=== PATIENT | female | born 1975 | race Caucasian/White ===

== ENCOUNTER → 2023-08-06 | Outpatient (CLI) | payer OTHER, SELFPAY ==
--- NOTE | 2023-08-06 15:51 | CT_ITS ---
EXAM: CT CERVICAL SPINE WITHOUT INTRAVENOUS CONTRAST CLINICAL INDICATION: Cervical Pain TECHNIQUE: Helically acquired images were obtained of the cervical spine without intravenous contrast. 2D reformatted images were reviewed. This CT exam was performed using one or more of the following dose reduction techniques: automated exposure control, adjustment of the mA and/or kV according to patient size, and/or use of iterative reconstruction technique. RADIATION DOSE: CTDIvol = 13.62 mGy, DLP = 303.52 mGy-cm. COMPARISON: No relevant prior studies available. FINDINGS: VERTEBRAE: Straightening of the usual lordotic curvature. Slight anterolisthesis of 2 with respect to C3 of roughly 2 mm, and at C3 with respect to C4 roughly 2 mm. Moderate disc space narrowing at C5-6 with anterior, posterior and uncovertebral osteophytes. Minimal narrowing of the ventral thecal sac at multiple levels, minimal AP estimated to be 1 cm at C5-6. Facet joint hypertrophic changes, greater on the left at C2-C4 and on the right at C3-4. No fracture or acute-appearing subluxation. DISCS/SPINAL CANAL/NEURAL FORAMINA: Mild disc space narrowing C4-5 and C6-7 minimal spondylosis. Moderate bilateral C5-6 neural foraminal stenosis. SOFT TISSUES: Unremarkable. No prevertebral soft tissue swelling. LYMPH NODES: Unremarkable. No cervical adenopathy. LUNG APICES: Unremarkable as visualized. Clear. CT/Spine Cervical without Contras IMPRESSION: 1. No specific acute abnormality. Minimal subluxations appear chronic. Straightening of the usual lordotic curvature 2. Degenerative spine changes most pronounced at C5-6 including borderline spinal canal narrowing and moderate neural foraminal stenosis. Electronically Signed: Marlee Cam MD at 3:58 EDT ,
== END | disposition home or self-care (01) ==
PROVIDERS: PCP Internal Medicine; Referring Provider Internal Medicine; Visit Provider Internal Medicine
DX: M54.2 Cervicalgia (principal)
CPT/HCPCS: 72125

== ENCOUNTER → 2023-08-13 | Outpatient (CLI) | payer OTHER, SELFPAY ==
--- NOTE | 2023-08-13 13:27 | MRI_ITS ---
EXAM: MR RIGHT UPPER EXTREMITY WITHOUT INTRAVENOUS CONTRAST, SHOULDER CLINICAL INDICATION: acute pain of right shoulder, weakness, numbness and tingling in fingers TECHNIQUE: Multiplanar and multisequence MR images of the right shoulder without intravenous contrast. COMPARISON: No relevant prior studies available. FINDINGS: TENDONS: SUPRASPINATUS: Focal low to moderate grade partial-thickness tear involving the articular sided fibers of the posterior supraspinatus tendon at its greater tubercle attachment. INFRASPINATUS: Unremarkable. Intact. SUBSCAPULARIS: Unremarkable. Intact. TERES MINOR: Unremarkable. Intact. BICEPS BRACHII, LONG HEAD: Unremarkable. The extra-articular biceps tendon is in the bicipital groove. The intra-articular biceps tendon is normal. LIGAMENTS: GLENOHUMERAL: Unremarkable. Intact. MUSCLES: Unremarkable. No rotator cuff muscle atrophy. FLUID: Unremarkable. No joint effusion. No subacromial-subdeltoid space bursal fluid. CARTILAGE: Unremarkable. Articular cartilage intact. GLENOID LABRUM: Unremarkable. Intact, limited evaluation on non-arthrographic exam. BONES/JOINTS: Type II acromion with curved surface. No subacromial enthesophyte or os acromiale. No fracture. Small cyst at the anterior humeral head. No other abnormal bone marrow signal. OTHER SOFT TISSUES: Unremarkable. No rotator interval edema. MRI/Upper Ext Joint Only(Routine) IMPRESSION: Focal low to moderate grade partial-thickness tear involving the articular sided fibers of the posterior supraspinatus tendon at its greater tubercle attachment. Electronically Signed: Jermaine Tristan MD at 21:24 EDT ,
== END | disposition home or self-care (01) ==
PROVIDERS: PCP Internal Medicine; Referring Provider Internal Medicine; Visit Provider Internal Medicine
DX: M25.511 Pain in right shoulder (principal)
CPT/HCPCS: 73221; Q9967